=== PATIENT | male | born 1955 | race Caucasian/White ===

== ENCOUNTER 2016-10-18 20:30 | Emergency (ER) | payer BC ==
[~2016-10-18 20:30] MED LIST: ASPIRIN81 M1 PO; BACTRIM DS TABL1 TA1 PO; FAMVIR500 MG PO; METOPROLOL SUCC25 MG PO; NORVASC PO; PREDNISONE PO; ULTRAM PO
== END 2016-10-18 22:45 | disposition home or self-care (01) ==
LOC: CED 20:30
DX: T15.02XA Foreign body in cornea, left eye, initial encounter (principal); I10 Essential (primary) hypertension; X58.XXXA Exposure to other specified factors, initial encounter; Y92.9 Unspecified place or not applicable
CPT/HCPCS: 65220; 99283